=== PATIENT | male | born 1945 | race Caucasian/White ===

== ENCOUNTER → 2018-12-13 | Outpatient (CLI) | payer MEDICARE, BC | END | disposition home or self-care (01) | LOC: LABPAT 16:03 | PROVIDERS: ATTEND Surgery Plastic and Reconstructive Surgery | DX: Z01.810 Encounter for preprocedural cardiovascular examination (principal) | CPT/HCPCS: 93005 ==

== ENCOUNTER 2019-01-20 06:44 | Day surgery (SDC) | payer MEDICARE, BC ==
[2019-01-18 09:04] VITALS: BMI 29.0
--- NOTE | 2019-01-19 21:12 | P.GSHP ---
History of Present Illness H&P Date: 01/20/19 CHIEF COMPLAINT: Inguinal hernia, left HISTORY OF PRESENT ILLNESS: The patient is a 73-year-old male who presents with a history of swelling and pain along the left groin. He has had previous repair. He's noted increased swelling including pain of the area. Now he presents for repair of his inguinal hernia. PAST MEDICAL HISTORY: Please see list. PAST SURGICAL HISTORY: Please see list. MEDICATIONS: Please see list. ALLERGIES: Please see list. SOCIAL HISTORY: No illicit drug use FAMILY HISTORY: No reports of Crohn disease or ulcerative colitis. REVIEW OF ORGAN SYSTEMS: CONSTITUTIONAL: No reports of fevers or chills. No reports of weight loss despite prior attempts. GI: Denies any blood in stools or constipation. PHYSICAL EXAM: VITAL SIGNS: Stable GENERAL: Well-developed pleasant male in no acute distress. HEENT: No scleral icterus. Extraocular movements grossly intact. Moist buccal mucosa. NECK: Supple without lymphadenopathy. CHEST: Unlabored respirations. Equal bilateral excursions. CARDIOVASCULAR: Regular rate and rhythm. Distal 2+ pulses. ABDOMEN: Soft, nondistended. No peritoneal signs. Palpable defect of the left groin. MUSCULOSKELETAL: No clubbing, cyanosis, or edema. ASSESSMENT: 1. Inguinal hernia, left PLAN: 1. Recommend proceeding with a robotic inguinal repair with mesh with possible bilateral approach. 2. Benefits and risks of surgical intervention was discussed including possibility of open technique. 3. DVT prophylaxis. 4. Antibiotic prophylaxis. Past Medical History Past Medical History: No Reported History History of Any Multi-Drug Resistant Organisms: None Reported Past Surgical History: Hernia Repair Additional Past Surgical History / Comment(s): cyst removed from neck Past Anesthesia/Blood Transfusion Reactions: No Reported Reaction Smoking Status: Never smoker - Past Family History Sister(s) Family Medical History: Cancer Medications and Allergies Home Medications Medication Instructions Recorded Confirmed Type No Known Home Medications 01/18/19 01/18/19 History Allergies Allergy/AdvReac Type Severity Reaction Status Date / Time No Known Allergies Allergy Verified 01/18/19 08:52
[~2019-01-20 06:44] MED LIST: ACETAMINOPHEN TAB 500 MG TAB PO STA; DEXAMETHASONE SOD PHOSPHATE 10 MG/ML 1 ML VIAL IV ONE; GABAPENTIN 300 MG CAP PO STA; HEPARIN SODIUM,PORCINE 5,000 UNIT/ML 1 ML VIAL SQ ONE; HYDROmorphone 0.5 MG/0.5 ML SYRINGE IVP PRN; KETOROLAC 30 MG/ML 1 ML VIAL IVP STA; LACTATED RINGERS 1,000 ML IV SCH; LIDOCAINE 1% 20 ML VIAL (10MG/ML) FOR IV START INTRADERMA PRN; MIDAZOLAM 2 MG/2 ML VIAL IV PRN; ONDANSETRON 4 MG/2 ML VIAL IVP ONE; SCOPOLAMINE 1.5MG/72HR PATCH TRANSDERM ONE; TAMSULOSIN 0.4 MG CAP.ER.24H PO STA
[2019-01-20 07:27] LABS: Basophils # (A) 0.1 k/uL (0-0.2); Basophils % (A) 1 %; Eosinophils # (A) 0.2 k/uL (0-0.7); Eosinophils % (A) 4 %; HCT 42.9 % (39.0-53.0); HGB 14.5 gm/dL (13.0-17.5); Lymphocytes # (A) 1.7 k/uL (1.0-4.8); Lymphocytes % (A) 35 %; MCH 29.8 pg (25.0-35.0); MCHC 33.7 g/dL (31.0-37.0); MCV 88.6 fL (80.0-100.0); Mean Platelet Volume 7.1; Monocytes # (A) 0.3 k/uL (0-1.0); Monocytes % (A) 7 %; Neutrophils # (A) 2.4 k/uL (1.3-7.7); Neutrophils % (A) 51 %; Platelet Count 243 k/uL (150-450); RBC 4.84 m/uL (4.30-5.90); RDW 13.2 % (11.5-15.5); WBC 4.8 k/uL (3.8-10.6)
[2019-01-20] MEDS ORDERED: fentaNYL (PF) 50 MCG/ML 2 ML AMP IVP ONE (07:36)
--- NOTE | 2019-01-20 07:45 | P.ANPRN ---
Procedure Note - Anesthesia - Nerve Block Performed Bilateral Transversus Abdominis Single Time Out Performed: Yes Date of Procedure: 01/20/19 Procedure Start Time: 07:35 Procedure Stop Time: 07:45 Location of Patient: PreOp Indication: Acute Post-Operative Pain Sedation Type: Sedate with meaningful contact maintained Preparation: Sterile Prep Position: Supine Catheter: None Needle Types: Pajunk Needle Gauge: 21 Ultrasound used to visualize needle placement: Yes Ultrasound used to observe medication spread: Yes Injectate: 0.5% Ropivacaine (see comment for volume) (20 CC + decadron 4mg per side) Blood Aspirated: No Pain Paresthesia on Injection Noted: No Resistance on Injection: Normal Image Stored and Saved: Yes Events: Uneventful and Well Tolerated
[2019-01-20 08:08] VITALS: RESP 16
[2019-01-20] MEDS ORDERED: KETAMINE 10 MG/ML 20 ML VIAL ONE (08:20)
[2019-01-20] MEDS ORDERED: GLYCOPYRROLATE 0.2 MG/ML 2 ML VIAL ONE (08:20)
[2019-01-20] MEDS ORDERED: DEXAMETHASONE SOD PHOSPHATE 4 MG/ML 1 ML VIAL ONE (08:20)
[2019-01-20] MEDS ORDERED: LIDOCAINE 1% INJ 10MG/ML (20 ML MDV) ONE (08:20)
[2019-01-20] MEDS ORDERED: ROPIVACAINE 5 MG/ML 30 ML VIAL ONE (08:20)
[2019-01-20] MEDS ORDERED: PROPOFOL 10 MG/ML 20 ML VIAL IV ONE (08:20)
[2019-01-20] MEDS ORDERED: NEOSTIGMINE 1 MG/ML 10 ML VIAL ONE (08:20)
[2019-01-20] MEDS ORDERED: MIDAZOLAM 2 MG/2 ML VIAL ONE (08:20)
[2019-01-20] MEDS ORDERED: fentaNYL (PF) 50 MCG/ML 2 ML AMP ONE (08:20)
[2019-01-20] MEDS ORDERED: ROCURONIUM BROMIDE 10 MG/ML 10 ML VIAL IV ONE (08:20)
[2019-01-20] MEDS ORDERED: BUPIVACAIN-EPI 0.25%-1:200,000 30 ML VIAL SQ ONE ×2 (09:00→09:05)
[2019-01-20 10:43] VITALS: TEMP 98.4
--- NOTE | 2019-01-20 11:16 | P.OP ---
Date of Procedure: 01/20/19 Description of Procedure: SURGEON: RENETTA VILLAREAL MD PREOPERATIVE DIAGNOSES: 1. Initial left inguinal hernia POSTOPERATIVE DIAGNOSES: 1. Initial left inguinal hernia, incarcerated with sigmoid colon, partial bowel obstruction 2. Moderate to severe sigmoid diverticulosis 3. Left iliac artery aneurysm OPERATION: 1. Robotic-assisted da Dolores Xi laparoscopic repair of initial incarcerated left indirect inguinal hernia with mesh, 11.[address] 2. Resection of incarcerated left inguinal lipoma, 4 cm x 5 cm ANESTHESIA: General with local anesthetic ESTIMATED BLOOD LOSS: 5 mL. SPECIMENS: 1. Incarcerated left inguinal hernia sac 2. Left inguinal lipoma COMPLICATIONS: None. FINDINGS: 1. Incarcerated left inguinal hernia over 5 x 4 cm, Nyhus IV, incorporating sigmoid colon with partial obstruction 2. No hernias along the right inguinal area 3. Sigmoid colon incarceration reduced without ischemia or infarction from left inguinal hernia 4. Sigmoid diverticulosis moderate to severe 5. Aneurysmal left iliac artery INDICATIONS: The patient is a 73-year-old female who presents with history of left inguinal hernia. Now he presents for definitive surgical intervention. Laparoscopic versus open and robotic approaches were discussed including bilateral approach. Benefits and risks including bleeding, infection, chronic groin pain, sterility were reviewed. Placement of mesh was also described. Informed consent was obtained. DESCRIPTION: In the preoperative area, an abdominal block was placed per anesthesia. The patient was brought to the operating room and initially laid in supine position. The abdomen had been prepped and draped in standard sterile fashion. Ioban draping was also placed. Prior to incision, a timeout protocol was confirmed with surgical team regarding patient's name including procedures to be performed. Initial positioning for the robotic assisted ports were selected 20 cm superior to the target anatomy. A 0 degree 5 mm laparoscopic trocar entry was performed at the left upper quadrant. The abdomen was insufflated to 15 mmHg which he tolerated well. Diagnostic laparoscopy demonstrated no injury to bowel, viscera or mesentery. Incarcerated sigmoid colon was found along the left groin. Next, along the epigastrium, 8 mm robot trocar was placed. An 8-mm robotic trocar was placed under direct visualization at the right upper quadrant. An 8 mm port was placed at the left upper quadrant. All trocars were positioned between 10-cm apart from each other. The [employer] XI robot was primed, draped, prepared for docking along upper abdomen of the patient. The patient was positioned 16 steep Trendelenburg position. I then went to the [employer] console. The medical records assistant was at bedside for exchange of the robot arms and equipment. A very large left inguinal defect was confirmed as the sigmoid colon was reduced from the left groin after direct pressure over the inguinal area was placed by the medical records assistant. Next, the left groin defect was measured 5 x 4-cm hernia with the sac extending to the scrotum. A large indirect hernia was confirmed. The left inguinal hernia sac was evaginated whereby the peritoneum was scored using Endo scissors with cautery. As the hernia sac extended into the groin, complete resection of the sac was done. Additionally, a 4 x 5 cm left inguinal lipoma was reduced. The peritoneal sac of the hernia was stripped. The lipoma and sac was resected and then passed off for further pathological analysis. The size of the hernia defect was 4 cm x 5 cm with intraoperative films obtained. Using a 2-0 VLOC, the peritoneal defect of the right inguinal hernia site was closed using a running suture. The defect was found to be completely closed with complete reduction of the left direct inguinal hernia was confirmed. Careful inspection of the left pelvis also demonstrated a questionable aneurysm of the left iliac artery. As an onlay, an 11.[address] mesh by [email or web address] was cut in half and entered into the abdominal cavity via the 8 mm trocar. The mesh was tacked to the pelvis using 2-0 VLOC 9-inch length sutures with nonabsorbable and absorbable sutures. A final endoscopic imaging was obtained. The robot was undocked from the patient's bedside. I then rescrubbed into the case. Insufflation was released from the abdominal cavity and all instruments were removed from the abdominal cavity. Pressure was applied along the left groin. The rest of incisions were reapproximated using 4-0 Monocryl in a running subcuticular fashion. Local anesthetic was placed along the incision including for a bilateral groin block. Incisions were cleansed using dilute hydrogen peroxide. Liquid glue was applied to the skin. At the end of the procedure, the needle, sponge and instrument counts had been verified correct by the surgical technology instructor. The patient had tolerated the procedure well and was taken to the postanesthesia care unit in stable condition. Intraoperative images were reviewed with the patient's family were pleased with the level of care. Plan - Discharge Summary Discharge Rx Participant: Yes New Discharge Prescriptions: New Tamsulosin [Flomax] 0.4 mg PO DAILY #5 cap.er.24h Ibuprofen [Motrin] 600 mg PO Q8HR PRN #30 tab PRN Reason: Pain Acetaminophen Tab [Tylenol Tab] 500 mg PO Q6H PRN #30 tablet PRN Reason: Pain Discharge Medication List Acetaminophen Tab [Tylenol Tab] 500 mg PO Q6H PRN #30 tablet 01/20/19 [Rx] Ibuprofen [Motrin] 600 mg PO Q8HR PRN #30 tab 01/20/19 [Rx] Tamsulosin [Flomax] 0.4 mg PO DAILY #5 cap.er.24h 01/20/19 [Rx] Follow up Appointment(s)/Referral(s): Renetta Villareal MD [STAFF PHYSICIAN] - 01/24/19 Patient Instructions/Handouts: Inguinal Hernia Repair (DC), Laparoscopic Herniorrhaphy (DC) Activity/Diet/Wound Care/Special Instructions: No lifting over 4 pounds in 4 weeks, Feb 20, 2019. May shower. No bath tub soaks for two weeks until Feb 03. Diet as tolerated. Take pain medications ibuprofen and tylenol scheduled for the first 48hr/2 days for best pain relief. Use ice pack along the incision for the next 24 hrs to decrease swelling. Discharge Disposition: HOME SELF-CARE
[2019-01-20 13:48] VITALS: BP 128/79; PULSE 77
== END 2019-01-20 13:54 | disposition home or self-care (01) ==
LOC: OR 06:44
PROVIDERS: ATTEND Surgery Plastic and Reconstructive Surgery
DX: K40.20 Bilateral inguinal hernia, without obstruction or gangrene, not specified as recurrent (principal); K56.600 Partial intestinal obstruction, unspecified as to cause; D17.1 Benign lipomatous neoplasm of skin and subcutaneous tissue of trunk; Z80.9 Family history of malignant neoplasm, unspecified; Z97.2 Presence of dental prosthetic device (complete) (partial); K57.30 Diverticulosis of large intestine without perforation or abscess without bleeding
CPT/HCPCS: 64488; 88304; 85025; 49650; C1781; J2250; J1644; J1100 ×2; J2710; J0690; J2405; J2001; J3010; J1885; J2795; J2704

== ENCOUNTER → 2021-01-29 | Outpatient (CLI) | payer MEDICARE ==
--- NOTE | 2021-01-30 10:15 | US ---
EXAMINATION TYPE: US groin LT DATE OF EXAM: 01/29/2021 COMPARISON: NONE CLINICAL HISTORY: 75-year-old male [id number] Unilateral inguinal hernia, without obstruction. Left groin pain x couple months TECHNIQUE: Targeted ultrasound of the left inguinal region. Comparison images to the contralateral ri ght side. FINDINGS: Left groin: 3.5cm bulging area seen at patient's left groin area of concern, appears to be peristalsi ng with valsalva, no color flow seen. A bowel signature is suggested. Right groin: appears wnl IMPRESSION: Left inguinal hernia suspected to contain small bowel.
== END | disposition home or self-care (01) ==
LOC: RADUSWWP 16:51
PROVIDERS: ATTEND Family Medicine
DX: K40.90 Unilateral inguinal hernia, without obstruction or gangrene, not specified as recurrent (principal)

== ENCOUNTER → 2021-02-06 | Outpatient (CLI) | payer MEDICARE | END | disposition home or self-care (01) | LOC: LABWHC1 10:29 | PROVIDERS: ATTEND Surgery Plastic and Reconstructive Surgery | DX: Z53.9 Procedure and treatment not carried out, unspecified reason (principal) ==

== ENCOUNTER → 2021-02-13 | Outpatient (CLI) | payer MEDICARE ==
[2021-02-13 13:30] LABS: African American GFR (CKD) >90 (>60 ml/min/1.73 sqM); Blood Urea Nitrogen 13 mg/dL (9-20); Non-African American GFR(CKD) 82 (>60 ml/min/1.73 sqM)
--- NOTE | 2021-02-14 08:52 | CT ---
EXAMINATION TYPE: CT abdomen pelvis w con DATE OF EXAM: 02/13/2021 COMPARISON: None HISTORY: Left lower quadrant abdominal pain. CT DLP: 987.2 mGycm CONTRAST: CT scan of the abdomen and pelvis is performed with Oral Contrast and with IV Contrast, patient injec jameel with 100ml mL of Isovue 300. FINDINGS: LUNG BASES-: No visible nodule. No infiltrate. LIVER/GB: No calcified gallstones. No space occupying hepatic lesion. Biliary tree is of normal ca liber. Hepatic granulomas noted. PANCREAS: No inflammation. No distinct mass. SPLEEN: No splenic enlargement. No lesion seen. Splenic granulomas noted. ADRENALS: No nodule. No thickening. KIDNEYS/BLADDER: No hydronephrosis. No nephrolithiasis. Parapelvic renal cysts noted bilaterally. N o solid renal lesion identified. Urinary bladder grossly unremarkable. BOWEL: Normal appendix. Normal bowel caliber. No inflammation. GENITAL ORGANS: No gross abnormality. LYMPH NODES: No greater than 1cm abdominal or pelvic lymph nodes are appreciated. AORTA: No significant abnormality. OSSEOUS STRUCTURES: No significant abnormality is seen. OTHER: Left inguinal hernia contains a segment of the large bowel. Fat-containing right inguinal nader ia noted as well. No evidence for obstruction. IMPRESSION: 1. Left inguinal hernia contains a segment of the large bowel. Fat-containing right inguinal hernia n oted as well
== END | disposition home or self-care (01) ==
LOC: RADCTMAIN 12:34
PROVIDERS: ATTEND Surgery Plastic and Reconstructive Surgery
DX: K40.20 Bilateral inguinal hernia, without obstruction or gangrene, not specified as recurrent (principal)
CPT/HCPCS: 82565; 84520; 74177; 36415; Q9967

== ENCOUNTER → 2021-03-10 | Outpatient (CLI) | payer MEDICARE | END | disposition home or self-care (01) | LOC: LABPAT 11:28 | PROVIDERS: ATTEND Surgery Plastic and Reconstructive Surgery | DX: Z20.822 Contact with and (suspected) exposure to COVID-19 (principal) ==

== ENCOUNTER 2021-03-13 09:39 | Day surgery (SDC) | payer MEDICARE ==
[2021-03-11 10:43] VITALS: BMI 29.6
--- NOTE | 2021-03-13 09:21 | P.GSHP ---
History of Present Illness H&P Date: 03/13/21 CHIEF COMPLAINT: Inguinal hernia, left HISTORY OF PRESENT ILLNESS: The patient is a 75-year-old male who presents with a history of swelling and pain along the left groin. He has had previous repair. He's noted increased swelling including pain of the area. Now he presents for repair of his inguinal hernia. PAST MEDICAL HISTORY: Please see list. PAST SURGICAL HISTORY: Please see list. MEDICATIONS: Please see list. ALLERGIES: Please see list. SOCIAL HISTORY: No illicit drug use FAMILY HISTORY: No reports of Crohn disease or ulcerative colitis. REVIEW OF ORGAN SYSTEMS: CONSTITUTIONAL: No reports of fevers or chills. No reports of weight loss despite prior attempts. GI: Denies any blood in stools or constipation. PHYSICAL EXAM: VITAL SIGNS: Stable GENERAL: Well-developed pleasant male in no acute distress. HEENT: No scleral icterus. Extraocular movements grossly intact. Moist buccal mucosa. NECK: Supple without lymphadenopathy. CHEST: Unlabored respirations. Equal bilateral excursions. CARDIOVASCULAR: Regular rate and rhythm. Distal 2+ pulses. ABDOMEN: Soft, nondistended. No peritoneal signs. Palpable defect of the left groin. MUSCULOSKELETAL: No clubbing, cyanosis, or edema. ASSESSMENT: 1. Inguinal hernia, left PLAN: 1. Recommend proceeding with a robotic inguinal repair with mesh with possible bilateral approach. 2. Benefits and risks of surgical intervention was discussed including possibility of open technique. 3. DVT prophylaxis. 4. Antibiotic prophylaxis. Past Medical History Past Medical History: No Reported History Additional Past Medical History / Comment(s): recurrent left inguinal hernia History of Any Multi-Drug Resistant Organisms: None Reported Past Surgical History: Hernia Repair Additional Past Surgical History / Comment(s): cyst removed from neck,left inguinal hernia repair with mesh x2 Past Anesthesia/Blood Transfusion Reactions: No Reported Reaction Additional Past Anesthesia/Blood Transfusion Reaction / Comment(s): no hx blood transfusion Smoking Status: Never smoker - Past Family History Sister(s) Family Medical History: No Reported History Medications and Allergies Allergies Allergy/AdvReac Type Severity Reaction Status Date / Time No Known Allergies Allergy Verified 03/11/21 10:43
[~2021-03-13 09:39] MED LIST changes: -DEXAMETHASONE SOD PHOSPHATE 10 MG/ML 1 ML VIAL IV ONE; +DEXAMETHASONE SOD PHOSPHATE 4 MG/ML 1 ML VIAL IV ONE; -HEPARIN SODIUM,PORCINE 5,000 UNIT/ML 1 ML VIAL SQ ONE; +HEPARIN SODIUM,PORCINE/PF 5,000 UNIT/0.5 ML SYRINGE SQ PRN; -HYDROmorphone 0.5 MG/0.5 ML SYRINGE IVP PRN; -KETOROLAC 30 MG/ML 1 ML VIAL IVP STA; -LIDOCAINE 1% 20 ML VIAL (10MG/ML) FOR IV START INTRADERMA PRN; +MELOXICAM 7.5 MG TAB PO SCH; -SCOPOLAMINE 1.5MG/72HR PATCH TRANSDERM ONE
[2021-03-13] MEDS ORDERED: fentaNYL (PF) 50 MCG/ML 2 ML AMP ONE (11:47)
[2021-03-13] MEDS ORDERED: HYDROmorphone (PF) 1 MG/ML ONE (11:47)
[2021-03-13] MEDS ORDERED: NEOSTIGMINE 1 MG/ML 10 ML VIAL ONE (11:47)
[2021-03-13] MEDS ORDERED: ROCURONIUM 10 MG/ML (5 ML VIAL) IV ONE (11:47)
[2021-03-13] MEDS ORDERED: MIDAZOLAM 2 MG/2 ML VIAL ONE (11:47)
[2021-03-13] MEDS ORDERED: SUCCINYLCHOLINE CHLORIDE 100 MG/5 ML SYR IV ONE (11:47)
[2021-03-13] MEDS ORDERED: LIDOCAINE 1% INJ 10MG/ML (20 ML MDV) ONE (11:47)
[2021-03-13] MEDS ORDERED: ePHEDrine 50 MG/ML 1 ML AMP ONE (11:47)
[2021-03-13] MEDS ORDERED: GLYCOPYRROLATE 0.2 MG/ML 2 ML VIAL ONE (11:47)
[2021-03-13] MEDS ORDERED: PHENYLEPHRINE-0.9% NACL SYG 1,000 MCG/10 ML SYRINGE ONE (11:47)
[2021-03-13] MEDS ORDERED: PROPOFOL 10 MG/ML 20 ML VIAL IV ONE (11:47)
[2021-03-13] MEDS ORDERED: BUPIVACAIN-EPI 0.25%-1:200,000 30 ML VIAL SQ ONE (12:14)
[2021-03-13] MEDS ORDERED: LACTATED RINGERS 1,000 ML IV ONE (13:32)
[2021-03-13 14:04] VITALS: TEMP 97.6
--- NOTE | 2021-03-13 14:04 | P.OP ---
Date of Procedure: 03/13/21 Description of Procedure: SURGEON: RENETTA VILLAREAL MD PREOPERATIVE DIAGNOSES: 1. Recurrent left inguinal hernia with bowel obstruction POSTOPERATIVE DIAGNOSES: 1. Recurrent left inguinal/obturator hernia with incarcerated sigmoid colon 2. Left obturator hernia 3. Left pelvic adhesions OPERATION: 1. Robotic assisted da Dolores Xi laparoscopic lysis of adhesions over 30 minutes 2. Robotic assisted da Dolores Xi laparoscopic reduction and repair of recurrent left inguinal hernia repair with ventralight ST mesh, 10 x 15 cm. Anesthesia: GETA, local Estimated Blood Loss (ml): 5 Pathology: other (Left obturator inguinal hernia sac) Condition: stable Disposition: floor COMPLICATIONS: None. Operative Findings: 1. Recurrent left inguinal hernia due to new left obturator hernia, medial to initial hernia repair 2. Internal hernia of the epiploic of the sigmoid colon lysis 3. Peritoneal adhesions left pelvis lysis for extensive lysis of adhesions INDICATIONS: The patient is a 75-year-old gentleman who presents with history of recurrent swelling from a left inguinal hernia. Laparoscopic versus open and robotic approaches were discussed. Benefits and risks including bleeding, infection, injury to the vas deferens as well as sterility and chronic groin pain were reviewed. Placement of mesh was also described. Informed consent was obtained. DESCRIPTION: In the preoperative area, the patient was marked with indelible marker along the left groin. The patient was brought to the operating room and laid in supine position. After general induction, the abdomen had been prepped and draped in standard sterile fashion. Ioban draping was also placed. Prior to incision, a timeout protocol was confirmed with surgical team regarding patient's name including procedures to be performed and location along the left groin. Initial positioning for the robotic assisted ports were selected whereby 20 cm superior to the target anatomy, 0 degree 5 mm laparoscopic trocar entry was performed at the left upper quadrant. The abdomen was insufflated to 15 mmHg which he had tolerated well. Diagnostic laparoscopy demonstrated moderate adhesions along the left pelvis including carcinoid sigmoid colon along the prior hernia repair from a new left obturator hernia. Additionally the sigmoid colon was incarcerated into the left groin with a large obturator left inguinal hernia over 3 cm in size. The right groin was unremarkable. Next, along the epigastrium, 8 mm robot trocar was placed. An 8-mm robotic trocar was placed under direct visualization at the right upper quadrant. The 5 mm port was exchanged for a 8 mm trocar. All trocars were positioned between 8 to 10-cm apart from each other. The patient was placed in steep reverse Trendelenburg position, 14. The [employer] robot was primed, draped, prepared for docking along the upper abdomen of the patient. I then went to the [employer] console. The mobile sales assistant was at bedside for exchange of the robot arms and equipment. Attention was brought to the left groin where moderate adhesions involving the epiploica of the sigmoid colon was adherent to the left pelvis. Extensive lysis of adhesions over 30 minutes was performed using vessel sealer including scissors without colotomy. At the left groin, over 3 cm obturator inguinal hernia was identified. The initial mesh was intact, recurrent hernia was found caused from his new obturator hernia. The hernia sac was evaginated whereby the peritoneum was scored using Endo scissors with cautery. Once completely reduced into the abdominal cavity, the peritoneal sac of the hernia was identified. The sac was resected and then passed off for further pathological analysis. The size of the hernia defect was 3 cm with intraoperative films obtained. Using nonabsorbable 2-0 VLOC, the peritoneal defect of the left inguinal hernia site was closed oversewn of medial aspect of the mesh to the peritoneum of the pelvis. The defect was found to be completely closed with complete reduction of the left inguinal hernia was confirmed. As an onlay, an 10 x [address] mesh by [employer] was cut in half and entered into the abdominal cavity via the 8 mm trocar. The mesh was tacked to the pelvis using nonabsorbable 2-0 VLOC x 9-inch length sutures as an onlay. The robot was undocked from the patient's bedside. I then rescrubbed into the case. Insufflation was released from the abdominal cavity and all instruments were removed from the abdominal cavity. Additional palm pressure was applied along the left groin as well as releasing any air along the scrotum and left groin. The rest of incisions were reapproximated using 4-0 Monocryl in a running subcuticular fashion. Local anesthetic was placed along the incision including for a groin block. Incisions were cleansed using dilute hydrogen peroxide. Liquid glue was applied to the skin. At the end of the procedure, the needle, sponge and instrument counts had been verified correct by the director surgical. The patient had tolerated the procedure well and was taken to the postanesthesia care unit in stable condition. Intraoperative findings were described to the patient's family who were pleased with the level of care. Plan - Discharge Summary Discharge Rx Participant: Yes New Discharge Prescriptions: New Tamsulosin [Flomax] 0.4 mg PO DAILY #5 cap Simethicone [Gas-X] 125 mg PO AC-TID PRN #20 capsule PRN Reason: Pain Ibuprofen [Motrin] 600 mg PO Q8HR PRN #30 tab PRN Reason: Pain Acetaminophen Tab [Tylenol Tab] 1,000 mg PO Q6HR PRN #30 tablet PRN Reason: Pain Discharge Medication List Acetaminophen Tab [Tylenol Tab] 1,000 mg PO Q6HR PRN #30 tablet 03/13/21 [Rx] Ibuprofen [Motrin] 600 mg PO Q8HR PRN #30 tab 03/13/21 [Rx] Simethicone [Gas-X] 125 mg PO AC-TID PRN #20 capsule 03/13/21 [Rx] Tamsulosin [Flomax] 0.4 mg PO DAILY #5 cap 03/13/21 [Rx] Follow up Appointment(s)/Referral(s): Renetta Villareal MD [STAFF PHYSICIAN] - 03/25/21 Patient Instructions/Handouts: Laparoscopic Herniorrhaphy (IP), Inguinal Hernia Repair (DC) Activity/Diet/Wound Care/Special Instructions: Using antibacterial soap. No lifting over 4 pounds 4 weeks, Apr 13. Refrain from rigorous sexual activity. May shower. No bathtub soaks for 2 weeks, Mar 27 Use ice along incisions for today to prevent swelling. Take tylenol, aleve/ibuprofen, simethicone scheduled for 3 days for best pain relief Discharge Disposition: HOME SELF-CARE
[2021-03-13 14:09] VITALS: RESP 16
[2021-03-13] MEDS ORDERED: KETOROLAC 15 MG/ML 1 ML VIAL IVP ONE (14:11)
[2021-03-13] MEDS: HYDROmorphone 0.5 MG/0.5 ML SYRINGE IVP PRN ×2 (14:12→14:30)
[2021-03-13 15:28] LABS: Basophils % (A) 1 %; Eosinophils # (A) 0.1 k/uL (0-0.7); Eosinophils % (A) 2 %; HCT 44.9 % (39.0-53.0); HGB 14.5 gm/dL (13.0-17.5); Lymphocytes # (A) 1.5 k/uL (1.0-4.8); Lymphocytes % (A) 28 %; MCH 29.5 pg (25.0-35.0); MCHC 32.2 g/dL (31.0-37.0); MCV 91.6 fL (80.0-100.0); Mean Platelet Volume 7.9; Monocytes # (A) 0.5 k/uL (0-1.0); Monocytes % (A) 9 %; Neutrophils % (A) 58 %; Platelet Count 246 k/uL (150-450); RDW 13.2 % (11.5-15.5); WBC 5.2 k/uL (3.8-10.6)
[2021-03-13 15:32] LABS: ALT 20 U/L (4-49); AST 27 U/L (17-59); African American GFR (CKD) >90 (>60 ml/min/1.73 sqM); Albumin 4.2 g/dL (3.5-5.0); Alkaline Phosphatase 105 U/L (38-126); Anion Gap 6 mmol/L; Blood Urea Nitrogen 12 mg/dL (9-20); Calcium 9.4 mg/dL (8.4-10.2); Carbon Dioxide 27 mmol/L (22-30); Chloride 104 mmol/L (98-107); Glucose 95 mg/dL (74-99); Non-African American GFR(CKD) 86 (>60 ml/min/1.73 sqM); Potassium 4.3 mmol/L (3.5-5.1); Sodium 137 mmol/L (137-145); Total Bilirubin 0.8 mg/dL (0.2-1.3); Total Protein 7.2 g/dL (6.3-8.2)
[2021-03-13 15:33] VITALS: PULSE 95
[2021-03-13 16:03] VITALS: BP 135/76
== END 2021-03-13 16:38 | disposition home or self-care (01) ==
LOC: OR 09:39
PROVIDERS: ATTEND Surgery Plastic and Reconstructive Surgery
DX: K40.31 Unilateral inguinal hernia, with obstruction, without gangrene, recurrent (principal); K45.8 Other specified abdominal hernia without obstruction or gangrene; K66.0 Peritoneal adhesions (postprocedural) (postinfection); Z98.890 Other specified postprocedural states; K21.9 Gastro-esophageal reflux disease without esophagitis; Z97.2 Presence of dental prosthetic device (complete) (partial)
CPT/HCPCS: 80053; 85025; 88302; 49651; C1781; J2250; J1100; J2710; J0690; J2405; J2001; J3010; J1170 ×2; J1885; J2370; J0330; J2704; J1644

== ENCOUNTER 2024-06-18 10:50 | Emergency (ER) | payer MEDICARE ==
[2024-06-18 10:56] VITALS: PULSE 75; TEMP 98
[2024-06-18] MEDS: KETOROLAC 15 MG/ML 1 ML VIAL IM STA (11:36)
[2024-06-18] MEDS: DEXAMETHASONE SOD PHOSPHATE 10 MG/ML 1 ML VIAL IM STA (11:36)
--- NOTE | 2024-06-18 11:53 | XR ---
EXAMINATION TYPE: XR knee complete RT DATE OF EXAM: 06/18/2024 CLINICAL INDICATION: Male, 78 years old with history of pain, pain TECHNIQUE: Frontal, lateral, and oblique views of the knee were obtained. COMPARISON: None. FINDINGS: There is no acute fracture/dislocation evident in right knee. Moderate narrowing patellofe moral and medial tibiofemoral compartments. Mild to moderate narrowing patellofemoral compartment. Me niscal calcifications are present raising concern for underlying chondrocalcinosis. Increased soft ti ssue density in the suprapatellar bursa suggests moderate to large size joint effusion. IMPRESSION: As above. [facility], , 06/18/2024 11:50 AM
--- NOTE | 2024-06-18 12:18 | ED ---
Lower Extremity Injury HPI - General Chief Complaint: Extremity Injury, Lower Stated Complaint: Swelling in right knee Time Seen by Provider: 06/18/24 11:08 Source: patient Mode of arrival: ambulatory Limitations: no limitations - History of Present Illness Initial Comments: 78-year-old male presenting with chief complaint of right knee pain and swelling . This has been ongoing for a while but has been worse over the past week. Patient is accompanied by family members who states that he is very active. He has had no recent injury. years ago he had an injury with a saw to the knee resulting in a large laceration. He has never seen an orthopedist. Pain is worse with weightbearing and ambulation. No numbness or tingling. No redness or excessive warmth. No fever. - Related Data Previous Rx's Medication Instructions Recorded Acetaminophen Tab [Tylenol Tab] 1,000 mg PO Q6HR PRN #30 tablet 03/13/21 Ibuprofen [Motrin] 600 mg PO Q8HR PRN #30 tab 03/13/21 Simethicone [Gas-X] 125 mg PO AC-TID PRN #20 capsule 03/13/21 Tamsulosin [Flomax] 0.4 mg PO DAILY #5 cap 03/13/21 methylPREDNISolone Dose Pack 4 mg PO DIRECTED #1 packet 06/18/24 [Medrol Dose Pack] Allergies Allergy/AdvReac Type Severity Reaction Status Date / Time No Known Allergies Allergy Verified 06/18/24 10:56 Review of Systems ROS Statement: Those systems with pertinent positive or pertinent negative responses have been documented in the HPI. ROS Other: All systems not noted in ROS Statement are negative. Past Medical History Past Medical History: No Reported History Additional Past Medical History / Comment(s): recurrent left inguinal hernia History of Any Multi-Drug Resistant Organisms: None Reported Past Surgical History: Hernia Repair, Joint Replacement, Orthopedic Surgery Additional Past Surgical History / Comment(s): cyst removed from neck,left inguinal hernia repair with meshx2 Past Anesthesia/Blood Transfusion Reactions: No Reported Reaction Additional Past Anesthesia/Blood Transfusion Reaction / Comment(s): no hx blood transfusion Past Psychological History: No Psychological Hx Reported Smoking Status: Never smoker Past Alcohol Use History: None Reported Past Drug Use History: None Reported - Past Family History Sister(s) Family Medical History: No Reported History General Exam Limitations: no limitations General appearance: alert, in no apparent distress Head exam: Present: atraumatic, normocephalic, normal inspection Eye exam: Present: normal appearance, EOMI Neck exam: Present: normal inspection. Absent: meningismus Respiratory exam: Absent: respiratory distress Cardiovascular Exam: Present: regular rate Right Knee exam: Present: tenderness, swelling, effusion. Absent: full ROM, erythema Neurological exam: Present: alert, oriented X3 Psychiatric exam: Present: normal affect, normal mood Skin exam: Present: warm, dry, normal color Course Vital Signs 06/18/24 10:53 Temperature 98 F Pulse Rate 75 Respiratory 20 Rate Blood Pressure 136/88 O2 Sat by Pulse 98 Oximetry Medical Decision Making - Medical Decision Making Was pt. sent in by a medical professional or institution (, PA, SENIOR VICE PRESIDENT AND CHIEF INFORMATION OFFICER, urgent care, hospital, or fci...) When possible be specific @ -No Did you speak to anyone other than the patient for history (EMS, parent, family, police, friend...)? What history was obtained from this source @ -No Did you review nursing and triage notes (agree or disagree)? Why? @ -I reviewed and agree with nursing and triage notes Were old charts reviewed (outside hosp., previous admission, EMS record, old EKG, old radiological studies, urgent care reports/EKG's, fci records)? Report findings @ -No old charts were reviewed Differential Diagnosis (chest pain, altered mental status, abdominal pain women, abdominal pain men, vaginal bleeding, weakness, fever, dyspnea, syncope, headache, dizziness, GI bleed, back pain, seizure, CVA, palpatations, mental health, musculoskeletal)? @ -Differential Musculoskeletal Muscular strain, contusion, ligament sprain, fracture, arthritis, septic a rthritis, bursitis, cellulitis, muscle spasm, nerve compression, DVT, arterial occlusion, herpes zoster, electrolyte abnormality, tumor.... This is not meant to be in all inclusive list EKG interpreted by me (3pts min.). @ -As above X-rays interpreted by me (1pt min.). @ -X-ray shows no acute fracture/dislocation evident in the right knee. Moderate narrowing patellofemoral and medial tibiofemoral compartments. Mild to moderate narrowing patellofemoral compartment. Meniscal calcifications are present raising concern for underlying chondrocalcinosis. Increased soft tissue density in the suprapatellar bursa suggest moderate to large sized joint effusion CT interpreted by me (1pt min.). @ -None done U/S interpreted by me (1pt. min.). @ -None done What testing was considered but not performed or refused? (CT, X-rays, U/S, labs)? Why? @ -None What meds were considered but not given or refused? Why? @ -None Did you discuss the management of the patient with other professionals (prof rowe i.e. , PA, SENIOR VICE PRESIDENT AND CHIEF INFORMATION OFFICER, lab, RT, psych nurse, manager social responsibility, muck operator, teacher, property portfolio officer, outsole caser)? Give summary @ -No Was smoking cessation discussed for >3mins.? @ -No Was critical care preformed (if so, how long)? @ -No Were there social determinants of health that impacted care today? How? (Homelessness, low income, unemployed, alcoholism, drug addiction, transportation, low edu. Level, literacy, decrease access to med. care, usp, rehab)? @ -No Was there de-escalation of care discussed even if they declined (Discuss DNR or withdrawal of care, Hospice)? DNR status @ -No What co-morbidities impacted this encounter? (DM, HTN, Smoking, COPD, CAD, Cancer, CVA, ARF, Chemo, Hep., AIDS, mental health diagnosis, sleep apnea, morbid obesity)? @ -None Was patient admitted / discharged? Hospital course, mention meds given and route, prescriptions, significant lab abnormalities, going to OR and other pertinent info. @ -78-year-old male presenting with chief complaint of right knee pain and swelling. No injury or trauma. History and physical examination are conducted. X-ray is negative for acute osseous process, there is evidence of joint space narrowing and effusion as well as meniscal calcifications. Patient was given pain medication. He is educated on today's findings. Provided with a written order for a walker for ambulation assistance while he is awaiting his orthopedic evaluation. Follow-up with orthopedics. Follow-up with PCP. Report back to ER with any new or worsening symptoms. Discussed return parameters and answered all questions. Patient conveyed verbal understanding and agreed to the plan. I discussed this case in detail with my attending Dr. Canela Undiagnosed new problem with uncertain prognosis? @ -No Drug Therapy requiring intensive monitoring for toxicity (Heparin, Nitro, Insulin, Cardizem)? @ -No Were any procedures done? @ -No Diagnosis/symptom? @ -Knee effusion Acute, or Chronic, or Acute on Chronic? @ -Acute Uncomplicated (without systemic symptoms) or Complicated (systemic symptoms)? @ -Uncomplicated Side effects of treatment? @ -No Exacerbation, Progression, or Severe Exacerbation? @ -No Poses a threat to life or bodily function? How? (Chest pain, [place], [place], pneumonia, PE, COPD, DKA, ARF, appy, cholecystitis, CVA, Diverticulitis, Homicidal, Suicidal, threat to staff... and all critical care pts) @ -Unlikely Disposition Clinical Impression: Knee effusion Disposition: HOME SELF-CARE Condition: Good Instructions (If sedation given, give patient instructions): Swollen Knee Joint (ED), Knee Pain (ED) Additional Instructions: Follow-up with orthopedics. Report back to ER with any new or worsening symptoms. Take Tylenol as needed for pain control. Prescriptions: methylPREDNISolone Dose Pack [Medrol Dose Pack] 4 mg PO DIRECTED #1 packet Is patient prescribed a controlled substance at d/c from ED?: No Referrals: Mat Morales MD [Primary Care Provider] - 1-2 days Clarke Lagunas MD [Medical Doctor] - 1-2 days Time of Disposition: 12:18
[2024-06-18] MEDS: ACET/COD 300 MG/30 MG STARTER PACK 6 TAB BTL PO STA (12:29)
[2024-06-18 12:41] VITALS: BP 158/79; RESP 18
== END 2024-06-18 12:41 | disposition home or self-care (01) ==
LOC: EC 10:50
DX: M25.461 Effusion, right knee (principal)
CPT/HCPCS: 73562; 99283; 96372 ×2; J1100; J1885